=== PATIENT | female | born 1990 | race African-American/Black ===

== ENCOUNTER 2022-03-25 19:10 | Emergency (ER) | payer SELFPAY ==
[2022-03-25] MEDS ORDERED: Dexamethasone 10 MG/ML VIAL ONE (19:54)
== END 2022-03-25 20:22 | disposition home or self-care (01) ==
LOC: CSHERS 19:10
DX: J02.9 Acute pharyngitis, unspecified (principal); D50.9 Iron deficiency anemia, unspecified; F17.210 Nicotine dependence, cigarettes, uncomplicated
CPT/HCPCS: 87081; 87430; 99283; J1100

== ENCOUNTER 2023-12-10 07:17 | Emergency (ER) | payer SELFPAY | END 2023-12-10 08:20 | disposition home or self-care (01) | LOC: CSHERS 07:17 | DX: J20.9 Acute bronchitis, unspecified (principal); F17.210 Nicotine dependence, cigarettes, uncomplicated | CPT/HCPCS: 71045 ==